=== PATIENT | female | born 1975 | race Two or more races ===

== ENCOUNTER 2017-09-21 13:55 | Emergency (ER) | payer MEDICAID ==
[~2017-09-21] VITALS: Ht 160 cm; Wt 77.1 kg
[2017-09-21 14:14] VITALS: BP 136/78
[2017-09-21 15:09] LABS: Basophils # (auto) 0.1 uL; Basophils % (auto) 1.2 % (0.0-2.0); Eosinophils # (auto) 0.2 uL; Eosinophils % (auto) 1.9 % (0.0-7.0); Hematocrit 45.9 % (36.0-46.0); Hemoglobin 15.8 g/dL (12.2-16.2); Lymphocytes # (auto) 2.1 uL; Mean Corpuscular Hemoglobin 30.8 pg (28.0-32.0); Mean Corpuscular Hgb Conc. 34.4 g/dL (32.0-36.0); Mean Corpuscular Volume 89.5 fL (80.0-100.0); Monocytes # (auto) 0.9 uL; Monocytes % (auto) 8.5 % (0.0-12.0); Neutrophils # (auto) 6.9 uL; Neutrophils % (auto) 67.4 % (37.0-80.0); Nucleated Red Blood Cells % 0.3 %; Platelet Count (auto) 266 10^3/uL (140-450); Red Blood Cells 5.13 10^6/uL (4.0-5.20); Red Cell Distribution Width 12.8 % (11.8-14.3); White Blood Cell 10.2 10^3/uL (4.4-10.8)
[2017-09-21 15:20] LABS: Albumin 4.1 g/dL (3.4-5.0); BUN/Creatinine Ratio 11.1; Bilirubin, Total 0.7 mg/dL (0.2-1.0); Calcium 9.1 mg/dL (8.5-10.1); Potassium 4.3 mmol/L (3.5-5.1); Total Protein 8.4 g/dL (6.4-8.2)
[2017-09-21 16:35] LABS: Urine Bacteria FEW /hpf (None Seen); Urine Blood Negative /uL (Negative); Urine Mucus FEW (None Seen); Urine Specific Gravity 1.015 (1.001-1.035); Urine WBC 3 /hpf (0 - 5)
== END 2017-09-21 20:00 | disposition left against medical advice (07) ==
LOC: ER 13:55
DX: R10.9 Unspecified abdominal pain (principal); M54.9 Dorsalgia, unspecified; Z53.21 Procedure and treatment not carried out due to patient leaving prior to being seen by health care provider
CPT/HCPCS: 36415; 80053; 81001; 85025

== ENCOUNTER 2019-12-17 23:43 | Inpatient (IN) | payer MEDICAID ==
[~2019-12-17] VITALS: Ht 160 cm; Wt 83.9 kg
[2019-12-18] MEDS ORDERED: SODIUM CHLORIDE 0.9% 1,000 ML IV ONE (00:45)
[2019-12-18] MEDS ORDERED: MORPHINE SULFATE 4 MG/ML SYR/VIAL IV ONE (00:45)
[2019-12-18] MEDS ORDERED: ONDANSETRON HCL 4 MG/2 ML VIAL IV ONE (00:45)
[2019-12-18] MEDS ORDERED: PANTOPRAZOLE 40 MG/10 ML VIAL INJ IV ONE (00:45)
[2019-12-18 02:58] LABS: Basophils # (auto) 0.1 10 ^3/uL (0-0.2); Basophils % (auto) 1.3 % (0.0-2.0); Eosinophils # (auto) 0.1 10 ^3/uL (0-0.8); Eosinophils % (auto) 1.8 % (0.0-7.0); Hematocrit 41.1 % (36.0-46.0); Lymphocytes # (auto) 2.6 10 ^3/uL (0.4-5.4); Mean Corpuscular Hemoglobin 30.3 pg (28.0-32.0); Mean Corpuscular Hgb Conc. 34.1 g/dL (32.0-36.0); Mean Corpuscular Volume 88.9 fL (80.0-100.0); Monocytes # (auto) 0.6 10 ^3/uL (0-1.3); Monocytes % (auto) 9.9 % (0.0-12.0); Neutrophils # (auto) 2.8 10 ^3/uL (1.6-8.6); Nucleated Red Blood Cells % 0.2 %; Platelet Count (auto) 228 10^3/uL (140-450); Red Blood Cells 4.62 10^6/uL (4.0-5.20); Red Cell Distribution Width 13.4 % (11.8-14.3); White Blood Cell 6.2 10^3/uL (4.4-10.8)
[2019-12-18 03:20] LABS: Albumin 3.8 g/dL (3.4-5.0); Calcium 8.4 mg/dL (8.5-10.1); Potassium 4.5 mmol/L (3.5-5.1)
[2019-12-18 03:23] LABS: BUN/Creatinine Ratio 14.8; Bilirubin, Total 0.5 mg/dL (0.2-1.0); Total Protein 7.7 g/dL (6.4-8.2)
[2019-12-18 05:40] LABS: Urine Bacteria FEW /hpf (None Seen); Urine Blood Negative /uL (Negative); Urine Specific Gravity 1.022 (1.001-1.035); Urine WBC <1 /hpf (0 - 5)
[2019-12-18] MEDS ORDERED: levoFLOXacin 500MG 100 ML IV ONE (13:15)
[2019-12-18] MEDS ORDERED: LIDOCAINE VISCOUS 2% 15ML UD ONE (14:33)
[2019-12-18] MEDS ORDERED: SODIUM CHLORIDE LOCK 10 ML ONE (14:33)
[2019-12-18] MEDS ORDERED: MIDAZOLAM HCL 5 MG/ML-1ML VIAL ONE (14:34)
[2019-12-18] MEDS ORDERED: diphenhdrAMINE HCL 50 MG/1 ML VL ONE (14:35)
[2019-12-18] MEDS ORDERED: fentaNYL CITRATE 100 MCG/2 ML VL ONE (14:35)
[2019-12-18] MEDS ORDERED: D5W/SOD CHL 0.45% 1,000 ML IV ONE (16:15)
[2019-12-18] MEDS ORDERED: MORPHINE SULF INJ 2 MG/ML SYRINGE 1ML IV PRN (16:15)
[2019-12-18] MEDS ORDERED: NITROGLYCERIN 0.4 MG SL TAB SL PRN (16:15)
[2019-12-18 17:00] VITALS: BP 130/75
[2019-12-18] MEDS ORDERED: SUCRALFATE 1 GM/10 ML ORAL SUSP PO SCH (17:00)
[2019-12-18] MEDS ORDERED: PANTOPRAZOLE 40 MG TAB PO SCH (22:00)
[2019-12-18] MEDS ORDERED: PANT40T PO (23:07)
== END 2019-12-18 19:00 | disposition home or self-care (01) | DRG 241 ==
LOC: ER 23:43 → TELE 23:44
PROVIDERS: ADMIT Internal Medicine; ATTEND Internal Medicine
PROC: 0DB68ZX Excision of Stomach, Via Natural or Artificial Opening Endoscopic, Diagnostic (ICD-10-PCS; principal; 2019-12-18 14:47)
DX: K29.81 Duodenitis with bleeding (principal); K29.71 Gastritis, unspecified, with bleeding; K92.0 Hematemesis; N28.1 Cyst of kidney, acquired; Z86.19 Personal history of other infectious and parasitic diseases; Z90.711 Acquired absence of uterus with remaining cervical stump; Z20.828 Contact with and (suspected) exposure to other viral communicable diseases
CPT/HCPCS: 36415; 43239; 71260; 74177; 80053; 81001; 82150; 83690; 84702; 85025; 85610; 96361; 96365; 96375; C9113; G0378; J1956; J2250; J2405